=== PATIENT | male | born 1935 | race Caucasian/White ===

== ENCOUNTER → 2017-05-21 | Outpatient (CLI) | payer MEDICARE, OTHER ==
[~2017-05-21] MED LIST: AMLO2.5T PO; ASPI-496 PO; ASPI81TA50 PO; LEVE500T53 PO; LOSA50TA6 PO; LOVA40TA2 PO; MAGN100T6 PO; METO25TA35 PO; OMEG-76 PO; OMEP-110 PO; OMNIPAQUE 350 MG/ML, 100ML BOTTLE ONE; SENN8.6C2 PO; UBID200C PO; VITA1CAP PO
== END | disposition home or self-care (01) ==
LOC: EDSEX → EDBD → CFH 14:39
PROVIDERS: ATTEND Specialist
DX: H81.13 Benign paroxysmal vertigo, bilateral (principal); I67.82 Cerebral ischemia; R90.82 White matter disease, unspecified; E11.9 Type 2 diabetes mellitus without complications
CPT/HCPCS: 70460; 82565; Q9967

== ENCOUNTER 2019-05-19 16:13 | Outpatient (CLI) | payer MEDICARE, OTHER | END 2019-05-19 23:59 | disposition home or self-care (01) | LOC: RAD 16:13 | PROVIDERS: ATTEND Family Medicine | DX: I77.811 Abdominal aortic ectasia (principal) | CPT/HCPCS: 36415; 74177; 80053; 82150; 83690; 85025; Q9967 ==